=== PATIENT | male | born 1980 | race Caucasian/White ===

== ENCOUNTER 2016-04-07 09:20 | Emergency (ER) | payer OTHER ==
[~2016-04-07 09:20] MED LIST: CIPROFLOXACIN500 M1 PO
== END 2016-04-07 10:17 | disposition home or self-care (01) ==
LOC: ER 09:20
DX: M54.42 Lumbago with sciatica, left side (principal)

== ENCOUNTER 2016-05-06 08:03 | Emergency (ER) | payer OTHER | END 2016-05-06 08:46 | disposition home or self-care (01) | LOC: ER 08:03 | DX: B34.9 Viral infection, unspecified (principal); J11.1 Influenza due to unidentified influenza virus with other respiratory manifestations; Z90.49 Acquired absence of other specified parts of digestive tract ==